=== PATIENT | male | born 1975 | race African-American/Black ===

== ENCOUNTER 2021-02-22 15:15 | Outpatient (REF) | payer OTHER, SELFPAY ==
--- NOTE | ~2021-02-22 | MR_ITS ---
MRI OF THE BRAIN WITHOUT IV CONTRAST INDICATION: Encephalopathy. COMPARISON: None available. TECHNIQUE: Multiplanar multisequence MR imaging of the brain was obtained without IV contrast. FINDINGS: There is no hydrocephalus, extra-axial surface collection, or herniation. Nonspecific T2 signal changes within the central judd and junction of the judd and right middle cerebellar peduncle for which postcontrast imaging could be obtained in light of the patient's history. The major flow voids at the skull base are preserved. There is no acute infarct on diffusion-weighted imaging. There is no intracranial hemorrhage on the gradient recalled echo acquisition. The midline structures are normal. The cerebellar tonsils are normally positioned. The cerebellum and brainstem are normal. The craniocervical junction is normal. Osseous marrow signal intensity is homogenous. The visualized soft tissues are unremarkable. MR/MR head/brain wo con IMPRESSION: Nonspecific T2 signal changes within the central judd and junction of the judd and right middle cerebellar peduncle for which postcontrast imaging could be obtained in light of the patient's history.
--- NOTE | ~2021-02-22 | XR_ITS ---
EXAMINATION: XR ORBITS CLINICAL INFORMATION: Pre-MRI screening. History metal to eye(s) as a child. COMPARISON: None TECHNIQUE: Orbits are imaged in 3 views. FINDINGS: There is no metallic orbital foreign body. A faint jewelry is seen overlying the mouth/tongue. XR/XR pre mri screening IMPRESSION: No metallic orbital foreign body.
== END 2021-02-22 15:16 | disposition home or self-care (01) ==
LOC: HO.MRI 15:15
PROVIDERS: Visit Provider Psychiatry & Neurology Neurology
DX: Z01.818 Encounter for other preprocedural examination (principal); G93.40 Encephalopathy, unspecified; H05.53 Retained (old) foreign body following penetrating wound of bilateral orbits
CPT/HCPCS: 70551